=== PATIENT | female | born 1990 | race Caucasian/White ===

== ENCOUNTER 2019-04-10 22:54 | Emergency (ER) | payer MEDICAID ==
[~2019-04-10] VITALS: Ht 157.5 cm; Wt 47.7 kg
[2019-04-11] MEDS ORDERED: ACETAMINOPHEN 325MG TABLET PO ONE (00:15)
[2019-04-11 00:34] VITALS: BP 108/54
== END 2019-04-11 00:36 | disposition left against medical advice (07) ==
LOC: ER 22:54
DX: S56.119A Strain of flexor muscle, fascia and tendon of finger of unspecified finger at forearm level, initial encounter (principal); M79.646 Pain in unspecified finger(s); Z98.890 Other specified postprocedural states; X58.XXXA Exposure to other specified factors, initial encounter; Y93.89 Activity, other specified; Y92.89 Other specified places as the place of occurrence of the external cause; Y99.8 Other external cause status
CPT/HCPCS: 81025; 99282